=== PATIENT | female | born 1950 | race Caucasian/White ===

== ENCOUNTER → 2016-09-29 | Outpatient (CLI) | payer MEDICARE, BC ==
[~2016-09-29] MED LIST: ASPIRIN81 M1 PO; AUGMENTIN PO; PREMARIN0.3 MG PO; SIMVASTATIN20 MG
--- NOTE | ~2016-09-29 | US98 ---
[facility] A Service [facility] RADIOLOGY TEXT RESULTS PATIENT: MARY DAVIS LOCATION: [facility] : 46 UNIT #: [id number] AGE: [address]: Tayo Peña MD SEX: F ORDER DR: [id number] [place] [id number] O MR#: [id number] Acc #: [id number] NAME: MAYR DAVIS : 1950 SEX: F STUDY DATE/TIME: 09/29/2016 10:31 UNIT: [facility] ROOM: STUDY DESCRIPTION: US Pelvic Non-OB Complete Attending Physician: Tayo Peña M.D. Referring Physician: Tayo Peña M.D. Ordering Physician: Tayo Peña M.D. Primary Care Physician: Tayo Peña M.D. MEDICAL IMAGING REPORT This report is preliminary unless electronic signature is present. EXAM Pelvic ultrasound INDICATION Pelvic discomfort for 6 months more pain with stressing bowel movements. TECHNIQUE Adkins-scale color Doppler and spectral Doppler waveform analysis was obtained through the pelvis both transabdominally and transvaginally. FINDINGS Patient's uterus is surgically absent and ovary is identified and it appears to have normal color-Doppler flow and no masses. This may be the right ovary. While this is not completely clear from the submitted images this patient reportedly has had history of unilateral oophorectomy. IMPRESSION 1. Changes of prior hysterectomy and unilateral oophorectomy. Only one ovary was identified and it is without masses and has normal color-Doppler flow Dictated by... Betina Alexander M.D. THIS IS AN ELECTRONICALLY VERIFIED REPORT Betina Alexander M.D. at 10/01/2016 3:02 PM AFF/rnr TD: 09/30/2016 18:29 JOB #: [id number] [facility] A Service of [facility] RADIOLOGY TEXT RESULTS PATIENT: MARY DAVIS LOCATION: [facility] #: [id number] : 46 UNIT #: [id number] AGE: [address]: Tayo Peña MD SEX: F ORDER DR: MEDICAL IMAGING REPORT Page 1 of 1
== END | disposition home or self-care (01) ==
LOC: SGUS 10:15
DX: R10.11 Right upper quadrant pain (principal); R10.30 Lower abdominal pain, unspecified; Z90.710 Acquired absence of both cervix and uterus; Z90.721 Acquired absence of ovaries, unilateral
CPT/HCPCS: 76830; 76856